=== PATIENT | male | born 1935 | race Caucasian/White ===

== ENCOUNTER 2020-10-17 08:17 | Outpatient (CLI) | payer MEDICARE, OTHER | END 2020-10-17 08:18 | disposition home or self-care (01) | LOC: NM 08:17 → EEVIPCON 08:17 → NM 08:18 | PROVIDERS: ATTEND Psychiatry & Neurology Neurology | DX: G20 Parkinson's disease (principal) | CPT/HCPCS: 78803; A9584 ==